=== PATIENT | female | born 1950 ===

== ENCOUNTER 2017-10-19 20:12 | Emergency (ER) | payer MEDICARE ==
[2017-10-19 20:12] VITALS: BMI 26.8
[2017-10-19 20:17] VITALS: RESP 16; O2SAT 100
--- NOTE | 2017-10-19 21:40 | ED PDOC ---
HPI: General Adult Time Seen by Provider: 10/19/17 21:21 Chief Complaint (Nursing): GI Problem Chief Complaint (Provider): dizziness History Per: Patient, Family History/Exam Limitations: no limitations Onset/Duration Of Symptoms: Hrs (5), Waxing/Waning Current Symptoms Are (Timing): Still Present Additional History Per: Patient, Family Additional Complaint(s): 67 y/o female presents for evaluation of intermittent dizziness x 5 hours. Patient describes dizziness as "room spinning", worse with movement. Associated nausea/vomiting and now has generalized headache. Patient with history of vertigo, states symptoms similar to previous episodes; took one Meclizine tablet but threw it up. Patient now notes palpitations. Denies fever, extremity numbness/weakness, chest pain, shortness of breath, abdominal pain, changes in bowel movements, urinary symptoms. Past Medical History Reviewed: Historical Data, Nursing Documentation, Vital Signs Vital Signs: Last Vital Signs Temp 98.6 F 10/19/17 20:15 Pulse 73 10/19/17 20:15 Resp 16 10/19/17 20:15 BP 158/98 H 10/19/17 20:15 Pulse Ox 100 10/20/17 01:02 - Medical History PMH: HTN, Hypercholesterolemia - Surgical History Surgical History: - Family History Family History: States: No Known Family Hx - Living Arrangements Living Arrangements: With Family - Home Medications Home Medications: Ambulatory Orders Medication Instructions Recorded Ondansetron ODT [Zofran ODT] 4 mg PO Q8 PRN #10 odt 10/20/17 - Allergies Allergies/Adverse Reactions: Allergies Allergy/AdvReac Type Severity Reaction Status Date / Time No Known Allergies Allergy Verified 10/19/17 20:15 Review of Systems ROS Statement: Except As Marked, All Systems Reviewed And Found Negative Gastrointestinal: Positive for: Nausea, Vomiting Neurological: Positive for: Headache, Dizziness Physical Exam - Reviewed Nursing Documentation Reviewed: Yes Vital Signs Reviewed: Yes - Physical Exam Appears: Positive for: Well, Non-toxic, No Acute Distress Head Exam: Positive for: ATRAUMATIC, NORMAL INSPECTION, NORMOCEPHALIC Skin: Positive for: Normal Color Eye Exam: Positive for: Normal appearance, EOMI, PERRL ENT: Positive for: Normal ENT Inspection Cardiovascular/Chest: Positive for: Regular Rate, Rhythm Respiratory: Positive for: Normal Breath Sounds Gastrointestinal/Abdominal: Positive for: Normal Exam Back: Positive for: Normal Inspection Extremity: Positive for: Normal ROM Neurologic/Psych: Positive for: Alert, Oriented - Laboratory Results Result Diagrams: 10/19/17 22:11 10/19/17 22:11 - ECG ECG: Positive for: Viewed By Me (reviewed by ED attending) ECG Rhythm: Positive for: Sinus Rhythm, Nonspecific Changes O2 Sat by Pulse Oximetry: 100 - Progress ED Course And Treament: labs, ekg, ct head, IV fluids, IV zofran, PO meclizine, PO tylenol EXAM: CT Head Without Intravenous Contrast CLINICAL HISTORY: 67 years old, female; Signs and symptoms; Dizziness; Additional info: Headache, dizziness, vomiting TECHNIQUE: Axial computed tomography images of the head/brain without intravenous contrast. All CT scans at this facility use one or more dose reduction techniques, viz.: automated exposure control; ma/kV adjustment per patient size (including targeted exams where dose is matched to indication; i.e. head); or iterative reconstruction technique. Coronal and sagittal reformatted images were created and reviewed. COMPARISON: No relevant prior studies available. FINDINGS: Brain: There is mild diffuse cerebral atrophy present, consistent with this patient's age. There is mild heterogeneity of the periventricular white matter attenuation, consistent with chronic white matter ischemic changes. Bilateral basal ganglia benigncalcifications are noted. No hemorrhage. Ventricles: The ventricular system demonstrates mild diffuse compensatory enlargement. Bones/joints: Unremarkable. No acute fracture. Soft tissues: Unremarkable. Sinuses: Unremarkable as visualized. No acute sinusitis. Mastoid air cells: Unremarkable as visualized. No mastoid effusion. IMPRESSION: Age-related atrophy and chronic white matter ischemic changes, with no evidence of an acute intracranial abnormality On re-eval, patient states dizziness resolved; still notes headache. IV reglan , IV toradol ordered 1:45 Patient states headache resolved. Tolerating PO. Patient educated on findings, discharged with instructions to follow up PMD 2-3 days. Continue Meclizine PRN. Rx Zofran provided Return precautions given. Disposition - Clinical Impression Clinical Impression: Vertigo, Headache - Patient ED Disposition Is Patient to be Admitted: No Counseled Patient/Family Regarding: Studies Performed, Diagnosis, Need For Followup - Disposition Disposition: Routine/Home Disposition Time: 01:56 Condition: IMPROVED Prescriptions: Ondansetron ODT [Zofran ODT] 4 mg PO Q8 PRN #10 odt PRN Reason: Nausea/Vomiting Instructions: Acute Headache (ED), Vertigo (ED) Forms: [employer] (Yakut) Print Language: GREENLANDIC
[2017-10-19 22:23] LABS: BASO % 0.4 % (0.0-2.0); EOS % 0.4 % (0.0-4.0); HEMOGLOBIN 13.3 g/dL (12.0-16.0); LYMPH # 1.5 K/uL (1.0-4.3); LYMPH % 14.6 % (20.0-40.0); MEAN CELL VOLUME 81.1 fl (81.0-99.0); MEAN CORPUSCULAR HEMOGLOBIN 26.3 pg (27.0-31.0); MEAN CORPUSCULAR HGB CONC 32.4 g/dL (33.0-37.0); MEAN PLATELET VOLUME 8.3 fl (7.2-11.7); MONO # 0.5 K/uL (0.0-0.8); MONO % 4.7 % (0.0-10.0); NEUT # 8.4 K/uL (1.8-7.0); NEUT % 79.9 % (50.0-75.0); RBC 5.05 Mil/uL (3.80-5.20); RED CELL DISTRIBUTION WIDTH 14.4 % (11.5-14.5); WHITE BLOOD COUNT 10.5 K/uL (4.8-10.8)
[2017-10-19 22:26] LABS: ALB/GLOB RATIO 1.3 (1.0-2.1); ALBUMIN 4.6 g/dL (3.5-5.0); ALT/SGPT 35 U/L (9-52); AST/SGOT 24 U/L (14-36); BLOOD UREA NITROGEN 13 mg/dl (7-17); CALCIUM 9.8 mg/dL (8.4-10.2); GFR AFRICAN-AMERICAN > 60; GFR NON-AFRICAN AMERICAN > 60
--- NOTE | 2017-10-19 22:40 | CT ---
EXAM: CT Head Without Intravenous Contrast CLINICAL HISTORY: 67 years old, female; Signs and symptoms; Dizziness; Additional info: Headache, dizziness, vomiting TECHNIQUE: Axial computed tomography images of the head/brain without intravenous contrast. All CT scans at this facility use one or more dose reduction techniques, viz.: automated exposure control; ma/kV adjustment per patient size (including targeted exams where dose is matched to indication; i.e. head); or iterative reconstruction technique. Coronal and sagittal reformatted images were created and reviewed. COMPARISON: No relevant prior studies available. FINDINGS: Brain: There is mild diffuse cerebral atrophy present, consistent with this patient's age. There is mild heterogeneity of the periventricular white matter attenuation, consistent with chronic white matter ischemic changes. Bilateral basal ganglia benigncalcifications are noted. No hemorrhage. Ventricles: The ventricular system demonstrates mild diffuse compensatory enlargement. Bones/joints: Unremarkable. No acute fracture. Soft tissues: Unremarkable. Sinuses: Unremarkable as visualized. No acute sinusitis. Mastoid air cells: Unremarkable as visualized. No mastoid effusion. IMPRESSION: Age-related atrophy and chronic white matter ischemic changes, with no evidence of an acute intracranial abnormality.
[2017-10-19] MEDS: Sodium Chloride 0.9% 500 ML IV STA (23:00)
[2017-10-20 02:03] VITALS: BP 123/71; PULSE 62; TEMP 97.6
--- NOTE | 2017-10-21 09:43 | CARD ---
APPROVED REPORT EKG Measurement Heart [id number] <Conclusion> Normal sinus rhythm Nonspecific T wave abnormality Abnormal ECG
== END 2017-10-20 02:05 | disposition home or self-care (01) ==
LOC: H.ER 20:12
DX: R42 Dizziness and giddiness (principal); R51 Headache; I10 Essential (primary) hypertension; E78.00 Pure hypercholesterolemia, unspecified
CPT/HCPCS: 70450; 80053; 84484; 85025; 93005; 96374; 99283; J1885; J2405; J2765; J7040

== ENCOUNTER 2018-09-24 19:29 | Emergency (ER) | payer OTHER, MEDICARE ==
[2018-09-24 19:30] VITALS: BMI 26.8
[2018-09-24 19:44] VITALS: TEMP 98.6
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
[2018-09-24 22:10] VITALS: BP 155/90; PULSE 64; RESP 18
[2018-09-25 05:47] VITALS: O2SAT 98
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
--- NOTE | 2018-09-25 09:15 | RAD ---
Date of service: 09/24/2018 HISTORY: upper back pain COMPARISON: No prior. FINDINGS: BONES: Alignment maintained. No fracture. DISC SPACES: Spondylosis. SOFT TISSUES: Normal. OTHER FINDINGS: None. IMPRESSION: Spondylosis.
--- NOTE | 2018-09-26 09:38 | CT ---
Date of service: 09/24/2018 PROCEDURE: CT HEAD WITHOUT CONTRAST. HISTORY: Headache COMPARISON: 10/19/2017. TECHNIQUE: Axial computed tomography images were obtained through the head/brain without intravenous contrast. Radiation dose: Total exam DLP = 777.93 mGy-cm. This CT exam was performed using one or more of the following dose reduction techniques: Automated exposure control, adjustment of the mA and/or kV according to patient size, and/or use of iterative reconstruction technique. FINDINGS: HEMORRHAGE: No intracranial hemorrhage. BRAIN: There are mild chronic microangiopathic changes. There is no mass, mass effect or abnormal extra-axial fluid collection. There is no territorial infarction. The midline sagittal structures are normal. There are symmetric senile bilateral basal ganglia calcifications. VENTRICLES: There is mild age-related global parenchymal volume loss and proportionate enlargement of the ventricles and cortical sulci. CALVARIUM: There is no calvarial fracture or extracranial soft tissue swelling. PARANASAL SINUSES: Predominantly clear. MASTOID AIR CELLS: Predominantly clear. OTHER FINDINGS: None. IMPRESSION: No acute intracranial abnormality. Mild chronic microangiopathic changes and mild age-related global parenchymal volume loss. A preliminary report was provided by [employer].
== END 2018-09-24 23:44 | disposition home or self-care (01) ==
LOC: H.ER 19:29
DX: M25.511 Pain in right shoulder (principal); M54.9 Dorsalgia, unspecified; M25.561 Pain in right knee; M25.562 Pain in left knee; V43.62XA Car passenger injured in collision with other type car in traffic accident, initial encounter; Y92.410 Unspecified street and highway as the place of occurrence of the external cause